=== PATIENT | female | born 1940 | race Two or more races ===

== ENCOUNTER 2020-01-07 21:11 | Inpatient (IN) ==
[2020-01-07] MEDS ORDERED: ASPIRIN 325 MG TABLET PO STA (22:17)
[2020-01-07] MEDS ORDERED: NITROGLYCERIN 2% OINT 1 INCH/GM PACK TOP STA (22:17)
[2020-01-07 22:44] LABS: Basophils # 0.1 10*3/uL (0.0-0.2); Basophils % 0.4 % (0.0-0.8); Eosinophils # 0.2 10*3/uL (0.0-0.87); Eosinophils % 1.7 % (0.00-10.9); Hematocrit 39.6 VOL% (35.7-47.0); Hemoglobin 13.2 GM/DL (12.0-16.0); Immature Granulocytes % 0.3 %; Immature Granulocytes Absolute 0.04 #; Lymphocytes # 3.6 10*3/uL (1.4-4.0); Lymphocytes % 30.5 % (21.3-54.2); Mean Corpuscular HGB Conc 33.3 GM/DL (32-36); Mean Corpuscular Volume 87.6 FL (87-102); Mean Platelet Volume 10.9 FL (9.6-12.0); Monocytes % 6.7 % (1.7-12.7); Neutrophils % 60.4 % (38.7-73.9); Platelet Count 358 T/CUMM (130-400); Red Blood Count 4.52 MC/CUMM (3.8-5.5); Red Cell Distribution Width 13.6 % (9.3-17.3); White Blood Count 11.9 T/CUMM (4-12)
[2020-01-07 22:50] LABS: Alanine Aminotransferase 20 U/L (13-56); Alkaline Phosphatase 183 U/L (45-117); Aspartate Amino Transferase 20 U/L (0-37); Bilirubin,Total < 0.39 MG/DL (0.2-1.0); Blood Urea Nitrogen 20 MG/DL (7-18); Calcium 9.4 MG/DL (8.5-10.1); Estimated Glom Filtration Rate 53 ML/MIN; Glucose 123 MG/DL (74-106); Osmolality,Calculated 280.5 MOS/KG (273-304); Total Protein 7.9 G/DL (6.4-8.3)
[2020-01-07] MEDS ORDERED: ENOXAPARIN 100 MG/ML SYRINGE SUBCUT STA (23:04)
[2020-01-07] MEDS ORDERED: TICAGRELOR 90 MG TABLET PO STA (23:07)
[2020-01-07] MEDS ORDERED: ACETAMINOPHEN 325 MG TABLET PO PRN (23:20)
[2020-01-07] MEDS ORDERED: ONDANSETRON 4 MG/2 ML VIAL IV PRN (23:20)
[2020-01-07] MEDS ORDERED: diphenhydrAMINE CAP 25 MG CAPSULE PO PRN (23:20)
[2020-01-07] MEDS ORDERED: MORPHINE 4 MG/1 ML VIAL IV PRN (23:20)
[2020-01-07] MEDS ORDERED: GLUCAGON 1 MG VIAL IM PRN (23:20)
[2020-01-07] MEDS ORDERED: DOCUSATE SODIUM 100 MG CAPSULE PO PRN (23:20)
[2020-01-07] MEDS ORDERED: NICOTINE 21 MG/24 HR PATCH TRANSDERM PRN (23:20)
[2020-01-07] MEDS ORDERED: DEXTROSE 50% 25 GM/50 ML VIAL IV PRN (23:20)
[2020-01-07] MEDS ORDERED: hydrALAZINE 20 MG/1 ML VIAL IV PRN (23:20)
[2020-01-07] MEDS ORDERED: guaiFENesin/DM ER 600-30 MG TABLET PO PRN (23:20)
[2020-01-07 23:23] LABS: Bilirubin,Urine Negative (Negative); Blood, Urine Negative (Negative); Glucose,Urine (UA) Negative (Negative); Ketones,Urine Negative (Negative); Mucus,Urine Occasional /LPF (Occasional); Nitrite,Urine Negative (Negative); Protein,Urine Negative; RBC,Urine <1 /HPF (0-4); Urine Appearance CLEAR (Clear); Urine Color Colorless (Yellow); Urine Specific Gravity 1.006 (1.001-1.035); Urine Urobilinogen < 2.0 EU/DL (0.2-1.0); WBC,Urine <1 /HPF (0-6)
[2020-01-07] MEDS ORDERED: NITROGLYCERIN SL 0.4 MG TABLET SL PRN (23:25)
[2020-01-08] MEDS ORDERED: ALUMINUM/MAGNES/SIMETH MAX STR 30 ML UDCUP PO PRN (02:25)
[2020-01-08] MEDS: POTASSIUM CHLORIDE 20 MEQ TABLET PO PRN ×3 (02:54→18:33)
[2020-01-08 04:11] LABS: Basophils % 0.3 % (0.0-0.8); Eosinophils # 0.1 10*3/uL (0.0-0.87); Eosinophils % 0.9 % (0.00-10.9); Hematocrit 37.4 VOL% (35.7-47.0); Hemoglobin 12.6 GM/DL (12.0-16.0); Immature Granulocytes % 0.4 %; Immature Granulocytes Absolute 0.04 #; Lymphocytes # 3.2 10*3/uL (1.4-4.0); Lymphocytes % 29.4 % (21.3-54.2); Mean Corpuscular HGB Conc 33.7 GM/DL (32-36); Mean Corpuscular Volume 88.6 FL (87-102); Mean Platelet Volume 10.1 FL (9.6-12.0); Monocytes % 4.4 % (1.7-12.7); Neutrophils % 64.6 % (38.7-73.9); Platelet Count 323 T/CUMM (130-400); Red Blood Count 4.22 MC/CUMM (3.8-5.5); Red Cell Distribution Width 13.6 % (9.3-17.3); White Blood Count 10.9 T/CUMM (4-12)
[2020-01-08 04:36] LABS: Calcium 9.4 MG/DL (8.5-10.1); Osmolality,Calculated 274.8 MOS/KG (273-304)
[2020-01-08] MEDS ORDERED: POTASSIUM CHLORIDE 20 MEQ TABLET PO ONE (06:19)
[2020-01-08] MEDS ORDERED: ASPIRIN 325 MG TABLET PO SCH ×2 (09:00)
[2020-01-08] MEDS: ENOXAPARIN 80 MG/0.8 ML SYRINGE SUBCUT SCH ×2 (10:23→20:34)
[2020-01-08] MEDS: amLODIPine 10 MG TABLET PO SCH (10:24)
[2020-01-08] MEDS: PANTOPRAZOLE 40 MG TABLET PO SCH (10:24)
[2020-01-08] MEDS: hydroCHLOROthiazide 12.5 MG CAPSULE PO SCH (10:25)
[2020-01-08] MEDS: TICAGRELOR 90 MG TABLET PO SCH ×2 (10:25→20:34)
[2020-01-08] MEDS: ASPIRIN EC 81 MG TABLET PO SCH (10:25)
[2020-01-08] MEDS: carvediloL 6.25 MG TABLET PO SCH ×2 (10:26→18:33)
[2020-01-08] MEDS ORDERED: DIAZEPAM 5 MG TABLET PO ONE (15:36)
[2020-01-08] MEDS ORDERED: MAGNESIUM SULF RIDER 2 GM in PREMIX 1 EACH IV PRN (15:36)
[2020-01-08] MEDS ORDERED: POTASSIUM CHLORIDE RIDER 10 MEQ in PREMIX 1 EACH IV PRN (15:36)
[2020-01-08] MEDS ORDERED: diphenhydrAMINE CAP 25 MG CAPSULE PO ONE (15:36)
[2020-01-08 17:07] LABS: Risk Ratio 3.2; VLDL CHOLESTEROL 32.2 MG/DL
[2020-01-08] MEDS: SIMVASTATIN 20 MG TABLET PO SCH (20:35)
[2020-01-08] MEDS: SODIUM CHLORIDE 0.9% 1,000 ML IV SCH (21:16)
[2020-01-08] MEDS: ZALEPLON 5 MG CAPSULE PO PRN (21:17)
[2020-01-09] MEDS: POTASSIUM CHLORIDE 20 MEQ TABLET PO PRN (04:21)
[2020-01-09 05:55] LABS: Basophils % 0.3 % (0.0-0.8); Eosinophils # 0.2 10*3/uL (0.0-0.87); Eosinophils % 2.5 % (0.00-10.9); Hematocrit 36.4 VOL% (35.7-47.0); Hemoglobin 12.2 GM/DL (12.0-16.0); Immature Granulocytes % 0.2 %; Immature Granulocytes Absolute 0.02 #; Lymphocytes # 3.3 10*3/uL (1.4-4.0); Lymphocytes % 37.7 % (21.3-54.2); Mean Corpuscular HGB Conc 33.5 GM/DL (32-36); Mean Corpuscular Volume 89.2 FL (87-102); Mean Platelet Volume 10.4 FL (9.6-12.0); Monocytes % 6.7 % (1.7-12.7); Neutrophils % 52.6 % (38.7-73.9); Platelet Count 309 T/CUMM (130-400); Red Blood Count 4.08 MC/CUMM (3.8-5.5); Red Cell Distribution Width 14.1 % (9.3-17.3); White Blood Count 8.7 T/CUMM (4-12)
[2020-01-09] MEDS ORDERED: DIAZEPAM 5 MG TABLET PO ONE (06:00)
[2020-01-09] MEDS ORDERED: diphenhydrAMINE CAP 25 MG CAPSULE PO ONE (06:00)
[2020-01-09 06:31] LABS: Calcium 9.2 MG/DL (8.5-10.1); Osmolality,Calculated 278.4 MOS/KG (273-304)
[2020-01-09] MEDS: SODIUM CHLORIDE 0.9% 1,000 ML IV SCH ×2 (07:56→17:40)
[2020-01-09] MEDS: hydroCHLOROthiazide 12.5 MG CAPSULE PO SCH (08:49)
[2020-01-09] MEDS: carvediloL 6.25 MG TABLET PO SCH ×2 (08:50→17:40)
[2020-01-09] MEDS: TICAGRELOR 90 MG TABLET PO SCH (08:50)
[2020-01-09] MEDS: ASPIRIN EC 81 MG TABLET PO SCH (08:50)
[2020-01-09] MEDS: PANTOPRAZOLE 40 MG TABLET PO SCH (08:50)
[2020-01-09] MEDS: amLODIPine 10 MG TABLET PO SCH (08:50)
[2020-01-09] MEDS ORDERED: LIDOCAINE 1% 20 ML VIAL ONE ×2 (11:31→12:23)
[2020-01-09] MEDS ORDERED: HEPARIN/NACL 0.9% 2 UNITS/ML 1,000 ML IV ONE ×2 (11:31→12:23)
[2020-01-09] MEDS ORDERED: MIDAZOLAM 2 MG/2 ML VIAL ONE (12:23)
[2020-01-09] MEDS ORDERED: fentaNYL 100 MCG/2 ML VIAL ONE (12:23)
[2020-01-09] MEDS ORDERED: BIVALIRUDIN 250 MG VIAL IV ONE (12:42)
[2020-01-09] MEDS: ZALEPLON 5 MG CAPSULE PO PRN (21:12)
[2020-01-09] MEDS: SIMVASTATIN 20 MG TABLET PO SCH (21:13)
[2020-01-10] MEDS: SODIUM CHLORIDE 0.9% 1,000 ML IV SCH (04:30)
[2020-01-10 05:45] LABS: Basophils % 0.4 % (0.0-0.8); Eosinophils # 0.2 10*3/uL (0.0-0.87); Eosinophils % 2.4 % (0.00-10.9); Hematocrit 36.4 VOL% (35.7-47.0); Hemoglobin 12.2 GM/DL (12.0-16.0); Immature Granulocytes % 0.3 %; Immature Granulocytes Absolute 0.03 #; Lymphocytes # 2.8 10*3/uL (1.4-4.0); Lymphocytes % 29.8 % (21.3-54.2); Mean Corpuscular HGB Conc 33.5 GM/DL (32-36); Mean Platelet Volume 10.4 FL (9.6-12.0); Monocytes % 5.8 % (1.7-12.7); Neutrophils % 61.3 % (38.7-73.9); Platelet Count 290 T/CUMM (130-400); Red Blood Count 4.09 MC/CUMM (3.8-5.5); White Blood Count 9.5 T/CUMM (4-12)
[2020-01-10 06:05] LABS: Calcium 8.9 MG/DL (8.5-10.1); Osmolality,Calculated 279.5 MOS/KG (273-304)
[2020-01-10] MEDS: amLODIPine 10 MG TABLET PO SCH (08:25)
[2020-01-10] MEDS: POTASSIUM CHLORIDE 20 MEQ TABLET PO PRN (08:25)
[2020-01-10] MEDS: hydroCHLOROthiazide 12.5 MG CAPSULE PO SCH (08:25)
[2020-01-10] MEDS: carvediloL 6.25 MG TABLET PO SCH (08:25)
[2020-01-10] MEDS: PANTOPRAZOLE 40 MG TABLET PO SCH (08:25)
[2020-01-10] MEDS: ASPIRIN EC 81 MG TABLET PO SCH (08:25)
[2020-01-10] MEDS ORDERED: ISOSORBIDE MONONITRATE 30 MG TABLET PO SCH (11:40)
[2020-01-10 12:46] VITALS: BP 131/63
== END 2020-01-10 12:47 | disposition home or self-care, planned readmission (81) | DRG 282 ==
LOC: N.ED 21:11 → N.EDINP 23:20 → SUATTDRO 23:20 → N.TELES 01-08 01:17
PROVIDERS: ADMIT Emergency Medicine; ATTEND Hospitalist

== ENCOUNTER 2020-01-17 09:00 | Inpatient (IN) ==
[2020-01-17] MEDS ORDERED: DEXTROSE 50% 25 GM/50 ML VIAL IV PRN (09:45)
[2020-01-17] MEDS ORDERED: CEFUROXIME INJ 1,500 MG in SYRINGE 1 EACH IV ONE (09:45)
[2020-01-17] MEDS ORDERED: GLUCAGON 1 MG VIAL IM PRN (09:45)
[2020-01-17] MEDS ORDERED: SODIUM CHLORIDE 0.9% 1,000 ML IV SCH (10:00)
[2020-01-17] MEDS ORDERED: INFLUENZA VIRUS VACCINE 0.5 ML SYRINGE IM ONE (10:10)
[2020-01-17 10:15] LABS: ABG Base Excess 5.7 MMOL/L (-2.5-2.5); ABG HCO3 29.4 MMOL/L (20-26); ABG Oxygen Saturation 94.4 % (95-100); ABG PH 7.493 (7.35-7.45); ABG PO2 66.5 MM HG (80-95); ABG TCO2 25.3 MMOL/L (23-27); Pt O2 Delivery Device Room Air
[2020-01-17 10:15] LABS: Basophils % 0.4 % (0.0-0.8); Eosinophils # 0.1 10*3/uL (0.0-0.87); Eosinophils % 1.3 % (0.00-10.9); Hematocrit 40.7 VOL% (35.7-47.0); Hemoglobin 14.1 GM/DL (12.0-16.0); Immature Granulocytes % 0.5 %; Immature Granulocytes Absolute 0.05 #; Lymphocytes # 2.7 10*3/uL (1.4-4.0); Lymphocytes % 25.4 % (21.3-54.2); Mean Corpuscular HGB Conc 34.6 GM/DL (32-36); Monocytes % 7.3 % (1.7-12.7); Neutrophils % 65.1 % (38.7-73.9); Platelet Count 403 T/CUMM (130-400); Red Blood Count 4.73 MC/CUMM (3.8-5.5); Red Cell Distribution Width 13.2 % (9.3-17.3); White Blood Count 10.5 T/CUMM (4-12)
[2020-01-17] MEDS ORDERED: PNEUMOCOCCAL VACCINE (13 VALENT) 0.5 ML SYRINGE IM ONE (10:23)
[2020-01-17 10:35] LABS: Alanine Aminotransferase 29 U/L (13-56); Albumin 3.9 G/DL (3.4-5.0); Alkaline Phosphatase 159 U/L (45-117); Aspartate Amino Transferase 18 U/L (0-37); Bilirubin,Total < 0.39 MG/DL (0.2-1.0); Blood Urea Nitrogen 16 MG/DL (7-18); Calcium 9.6 MG/DL (8.5-10.1); Estimated Glom Filtration Rate 56 ML/MIN; Glucose 102 MG/DL (74-106); Osmolality,Calculated 268.2 MOS/KG (273-304); Total Protein 8.4 G/DL (6.4-8.3)
[2020-01-17] MEDS ORDERED: ACETAMINOPHEN 325 MG TABLET PO PRN (11:12)
[2020-01-17] MEDS ORDERED: ZALEPLON 5 MG CAPSULE PO PRN (12:23)
[2020-01-17] MEDS ORDERED: CLORAZEPATE 3.75 MG TABLET PO PRN (12:26)
[2020-01-17] MEDS ORDERED: DIAZEPAM 5 MG TABLET PO ONE (14:22)
[2020-01-17] MEDS ORDERED: FAMOTIDINE 20 MG TABLET PO ONE (14:22)
[2020-01-17] MEDS: ASCORBIC ACID 500 MG TABLET PO SCH ×2 (14:41→21:07)
[2020-01-17] MEDS: CHLORHEXIDINE 4% SOLN 118 ML BOTTLE TOP SCH ×2 (14:42→21:10)
[2020-01-17] MEDS: carvediloL 6.25 MG TABLET PO SCH (18:24)
[2020-01-17] MEDS ORDERED: ROSUVASTATIN 20 MG TABLET PO SCH (21:00)
[2020-01-17] MEDS ORDERED: PRAVASTATIN 40 MG TABLET PO SCH (21:00)
[2020-01-17] MEDS: CHLORHEXIDINE 0.12% ORAL RINSE 60 ML BOTTLE SWISH/SPIT SCH (21:37)
[2020-01-18] MEDS ORDERED: PAPAVERINE 60 MG/2 ML VIAL ONE (04:22)
[2020-01-18] MEDS ORDERED: VANCOMYCIN 500 MG VIAL ONE (04:23)
[2020-01-18] MEDS ORDERED: VANCOMYCIN 1,000 MG VIAL ONE (04:23)
[2020-01-18] MEDS ORDERED: DIAZEPAM 5 MG TABLET PO ONE (06:00)
[2020-01-18] MEDS ORDERED: CEFUROXIME INJ 1,500 MG in SYRINGE 1 EACH IV ONE (06:00)
[2020-01-18] MEDS ORDERED: FAMOTIDINE 20 MG TABLET PO ONE (06:00)
[2020-01-18] MEDS ORDERED: SODIUM CHLORIDE 0.9% 1,000 ML IV SCH (06:00)
[2020-01-18 07:31] LABS: ABG Base Excess 2.3 MMOL/L (-2.5-2.5); ABG HCO3 26.5 MMOL/L (20-26); ABG PCO2 37.2 MM HG (35-48); ABG PH 7.455 (7.35-7.45); ABG TCO2 23.4 MMOL/L (23-27); Glucose Heart Surgery 113 MG/DL (74-106); Hematocrit Heart Surgery 33.3 PERCENT (37-47); Hemoglobin Heart Surgery 10.8 G/DL (12.0-16.0); Ionized Calcium Arterial 1.23 MMOL/L (1.21-1.46); PCO2 Patient Temp Arterial 37.2 MMHG; PH Patient Temp Arterial 7.455; Patient Temperature 37 CELCIUS; Potassium Heart/CVR 2.7 MMOL/L (3.5-5.1); Sodium Heart/CVR 139 MMOL/L (135-145)
[2020-01-18 07:55] LABS: Amorphous Crystals,Urine Few /HPF (Few); Bilirubin,Urine Negative (Negative); Blood, Urine Negative (Negative); Glucose,Urine (UA) Negative (Negative); Ketones,Urine Negative (Negative); Mucus,Urine Occasional /LPF (Occasional); Nitrite,Urine Negative (Negative); Protein,Urine Negative; RBC,Urine <1 /HPF (0-4); Urine Appearance CLEAR (Clear); Urine Color Yellow (Yellow); Urine Specific Gravity 1.016 (1.001-1.035)
[2020-01-18] MEDS ORDERED: ASPIRIN EC 81 MG TABLET PO SCH (09:00)
[2020-01-18] MEDS ORDERED: hydroCHLOROthiazide 12.5 MG CAPSULE PO SCH (09:00)
[2020-01-18] MEDS ORDERED: ISOSORBIDE MONONITRATE 30 MG TABLET PO SCH (09:00)
[2020-01-18] MEDS ORDERED: amLODIPine 10 MG TABLET PO SCH (09:00)
[2020-01-18 09:09] LABS: Hematocrit Heart Surgery 21.7 PERCENT (37-47); Hemoglobin Heart Surgery 6.9 G/DL (12.0-16.0); PCO2 Patient Temp Venous 30.8 MM HG; PH Patient Temp Venous 7.535; Potassium Heart/CVR 4.6 MMOL/L (3.5-5.1); VBG Base Excess 3.6 MEQ/L (0-4); VBG HCO3 27.4 MEQ/L (24-28); VBG PCO2 35.6 MMHG (41-51); VBG PH 7.489; VBG PO2 38.2 MMHG (17-40)
[2020-01-18] MEDS ORDERED: PHENYLEPHRINE 10 MG/1 ML VIAL IV ONE ×2 (09:15→12:09)
[2020-01-18] MEDS ORDERED: HEPARIN/NACL 0.9% 2 UNITS/ML 500 ML IV ONE (09:15)
[2020-01-18] MEDS ORDERED: NITROGLYCERIN DRIP 50 MG/250 ML BOTTLE IV ONE (09:16)
[2020-01-18 09:35] LABS: Hematocrit Heart Surgery 25.1 PERCENT (37-47); Hemoglobin Heart Surgery 8.1 G/DL (12.0-16.0); PCO2 Patient Temp Venous 30.6 MM HG; PH Patient Temp Venous 7.524; PO2 Patient Temp Venous 27.4 MM HG; Potassium Heart/CVR 4.2 MMOL/L (3.5-5.1); VBG Base Excess 2.8 MEQ/L (0-4); VBG HCO3 26.5 MEQ/L (24-28); VBG Oxygen Saturation 67.8 %; VBG PCO2 35.4 MMHG (41-51); VBG PH 7.479; VBG PO2 33.9 MMHG (17-40)
[2020-01-18 10:04] LABS: PCO2 Patient Temp Venous 31.7 MM HG; PH Patient Temp Venous 7.502; PO2 Patient Temp Venous 37.4 MM HG; Potassium Heart/CVR 4.1 MMOL/L (3.5-5.1); VBG HCO3 25.9 MEQ/L (24-28); VBG Oxygen Saturation 78.1 %; VBG PCO2 33.3 MMHG (41-51); VBG PH 7.487; VBG PO2 40.2 MMHG (17-40)
[2020-01-18] MEDS ORDERED: PHENYLEPHRINE DRIP 40 MG/250 ML PREMIX IV ONE (10:16)
[2020-01-18] MEDS ORDERED: ALBUMIN 5% 12.5 GM/250 ML VIAL IV ONE (10:16)
[2020-01-18] MEDS ORDERED: POTASSIUM CHLORIDE RIDER 100 ML IV ONE ×2 (10:17→18:00)
[2020-01-18] MEDS: carvediloL 6.25 MG TABLET PO SCH (10:24)
[2020-01-18] MEDS: CHLORHEXIDINE 0.12% ORAL RINSE 60 ML BOTTLE SWISH/SPIT SCH (10:25)
[2020-01-18] MEDS: ASCORBIC ACID 500 MG TABLET PO SCH (10:25)
[2020-01-18] MEDS: CHLORHEXIDINE 4% SOLN 118 ML BOTTLE TOP SCH (10:25)
[2020-01-18] MEDS ORDERED: LIDOCAINE 2% 5 ML VIAL ONE (10:40)
[2020-01-18] MEDS ORDERED: MANNITOL 100 GM/500 ML BAG IV ONE (10:40)
[2020-01-18] MEDS ORDERED: PROTAMINE SULFATE 50 MG/5 ML VIAL IV ONE (10:41)
[2020-01-18] MEDS ORDERED: PROTAMINE SULFATE 250 MG/25 ML VIAL IV ONE (10:41)
[2020-01-18] MEDS ORDERED: methylPREDNISolone SOD SUC 1,000 MG/8 ML VIAL ONE (10:41)
[2020-01-18] MEDS ORDERED: ALBUMIN 25% 25 GM/100 ML VIAL IV ONE (10:41)
[2020-01-18] MEDS ORDERED: DEXTROSE 5% KCL 20 MEQ 20 MEQ/1,000 ML BAG IV ONE (10:41)
[2020-01-18] MEDS ORDERED: HEPARIN 10,000 UNIT/10 ML VIAL ONE (10:41)
[2020-01-18] MEDS ORDERED: SODIUM BICARBONATE 50 MEQ/50 ML VIAL IV ONE (10:41)
[2020-01-18] MEDS ORDERED: MAGNESIUM SULFATE 5 GM/10 ML VIAL IV ONE (10:41)
[2020-01-18] MEDS ORDERED: FUROSEMIDE 20 MG/2 ML VIAL ONE (10:41)
[2020-01-18] MEDS ORDERED: POTASSIUM CHLORIDE 20 MEQ/10 ML VIAL ONE (10:42)
[2020-01-18 10:47] LABS: ABG Base Excess 0.4 MMOL/L (-2.5-2.5); ABG HCO3 24.8 MMOL/L (20-26); ABG PCO2 35.1 MM HG (35-48); ABG PH 7.447 (7.35-7.45); ABG TCO2 22.4 MMOL/L (23-27); Glucose Heart Surgery 235 MG/DL (74-106); Hematocrit Heart Surgery 25.9 PERCENT (37-47); Hemoglobin Heart Surgery 8.3 G/DL (12.0-16.0); Ionized Calcium Arterial 1.34 MMOL/L (1.21-1.46); PCO2 Patient Temp Arterial 35.1 MMHG; PH Patient Temp Arterial 7.447; Patient Temperature 37 CELCIUS; Potassium Heart/CVR 2.8 MMOL/L (3.5-5.1); Sodium Heart/CVR 136 MMOL/L (135-145)
[2020-01-18] MEDS ORDERED: INSULIN REGULAR 100 UNIT/ML IV PRN (11:42)
[2020-01-18] MEDS ORDERED: DEXTROSE 50% 25 GM/50 ML VIAL IV PRN ×2 (11:42)
[2020-01-18] MEDS ORDERED: ALBUMIN 5% 12.5 GM in PREMIX 1 EACH IV PRN (11:42)
[2020-01-18] MEDS ORDERED: ACETAMINOPHEN 650 MG SUPP RECTAL PRN (11:42)
[2020-01-18] MEDS ORDERED: MAGNESIUM SULF RIDER 2 GM in PREMIX 1 EACH IV PRN (11:42)
[2020-01-18] MEDS ORDERED: SODIUM CHLORIDE 0.45% 1,000 ML IV SCH ×2 (11:42)
[2020-01-18] MEDS ORDERED: INSULIN REGULAR 100 UNIT/ML IV ONE (11:42)
[2020-01-18] MEDS ORDERED: MAGNESIUM SULF RIDER 4 GM in PREMIX 1 EACH IV PRN (11:42)
[2020-01-18] MEDS ORDERED: MORPHINE 10 MG/1 ML VIAL IV PRN (11:42)
[2020-01-18] MEDS ORDERED: MIDAZOLAM 2 MG/2 ML VIAL IV PRN (11:42)
[2020-01-18] MEDS ORDERED: PHENYLEPHRINE DRIP 40 MG/250 ML PREMIX IV PRN (11:42)
[2020-01-18] MEDS ORDERED: MIDAZOLAM 10 MG/2 ML VIAL IV PRN (11:42)
[2020-01-18] MEDS ORDERED: CHLORHEXIDINE 4% SOLN 118 ML BOTTLE TOP PRN (11:42)
[2020-01-18] MEDS ORDERED: VECURONIUM 10 MG VIAL IV PRN ×2 (11:42)
[2020-01-18] MEDS ORDERED: INSULIN REGULAR DRIP 100 ML IV SCH (11:42)
[2020-01-18] MEDS ORDERED: CALCIUM CHLORIDE 1,000 MG/10 ML SYRINGE IV PRN (11:42)
[2020-01-18] MEDS ORDERED: NITROPRUSSIDE 100 MG in DEXTROSE 5% 250 ML IV PRN (11:42)
[2020-01-18] MEDS ORDERED: ONDANSETRON 4 MG/2 ML VIAL IV PRN (11:42)
[2020-01-18] MEDS: LACTATED RINGERS 250 ML IV PRN ×5 (11:52→18:37)
[2020-01-18 11:53] LABS: ABG Base Excess 0.2 MMOL/L (-2.5-2.5); ABG HCO3 24.6 MMOL/L (20-26); ABG PCO2 36.3 MM HG (35-48); ABG PH 7.432 (7.35-7.45); ABG TCO2 22.1 MMOL/L (23-27); Glucose Heart Surgery 204 MG/DL (74-106); Hematocrit Heart Surgery 29.5 PERCENT (37-47); Hemoglobin Heart Surgery 9.5 G/DL (12.0-16.0); Potassium Heart/CVR 3.5 MMOL/L (3.5-5.1)
[2020-01-18 11:55] LABS: Basophils % 0.2 % (0.0-0.8); Eosinophils # 0.2 10*3/uL (0.0-0.87); Eosinophils % 0.9 % (0.00-10.9); Hematocrit 27.6 VOL% (35.7-47.0); Immature Granulocytes % 0.5 %; Immature Granulocytes Absolute 0.08 #; Lymphocytes # 2.2 10*3/uL (1.4-4.0); Mean Corpuscular HGB Conc 34.4 GM/DL (32-36); Mean Corpuscular Volume 86.3 FL (87-102); Mean Platelet Volume 10.4 FL (9.6-12.0); Monocytes % 4.1 % (1.7-12.7); Neutrophils % 81.3 % (38.7-73.9); Red Cell Distribution Width 13.2 % (9.3-17.3); White Blood Count 17.2 T/CUMM (4-12)
[2020-01-18 11:56] LABS: Hemoglobin 9.5 GM/DL (12.0-16.0); Platelet Count 241 T/CUMM (130-400)
[2020-01-18] MEDS: POTASSIUM CHLORIDE RIDER 20 MEQ in PREMIX 1 EACH IV PRN ×5 (11:58→23:27)
[2020-01-18 12:03] LABS: INR 1.2
[2020-01-18] MEDS ORDERED: CALCIUM CHLORIDE 1,000 MG/10 ML VIAL IV ONE (12:07)
[2020-01-18] MEDS ORDERED: LACTATED RINGERS 1,000 ML IV ONE (12:08)
[2020-01-18] MEDS ORDERED: SUFentanil 250 MCG/5 ML AMP ONE (12:08)
[2020-01-18] MEDS ORDERED: SODIUM CHLORIDE 0.9% 1,000 ML IV ONE (12:08)
[2020-01-18] MEDS ORDERED: SEVOFLURANE 1 UNIT/15 MINUTE INH ONE (12:08)
[2020-01-18] MEDS ORDERED: MIDAZOLAM 10 MG/2 ML VIAL ONE (12:08)
[2020-01-18] MEDS ORDERED: AMINOCAPROIC ACID 5,000 MG/20 ML VIAL ONE (12:08)
[2020-01-18] MEDS ORDERED: SODIUM CHLORIDE 0.9% 500 ML IV ONE (12:08)
[2020-01-18] MEDS ORDERED: VECURONIUM 10 MG VIAL IV ONE (12:08)
[2020-01-18 12:12] LABS: CKMB % 8.7 %
[2020-01-18 12:15] LABS: Troponin I 7.68 NG/ML (0.00-0.045)
[2020-01-18 12:28] LABS: Bilirubin,Total 0.5 MG/DL (0.2-1.0); Calcium 10.3 MG/DL (8.5-10.1); Osmolality,Calculated 285.3 MOS/KG (273-304); Total Protein 5.6 G/DL (6.4-8.3)
[2020-01-18 13:44] LABS: ABG Base Excess 0.4 MMOL/L (-2.5-2.5); ABG HCO3 24.8 MMOL/L (20-26); ABG PCO2 35.5 MM HG (35-48); ABG TCO2 21.4 MMOL/L (23-27); Glucose Heart Surgery 207 MG/DL (74-106); Hemoglobin Heart Surgery 11.7 G/DL (12.0-16.0); Potassium Heart/CVR 3.5 MMOL/L (3.5-5.1)
[2020-01-18] MEDS: POTASSIUM CHLORIDE RIDER 10 MEQ in PREMIX 1 EACH IV PRN ×2 (13:59→14:54)
[2020-01-18 17:06] LABS: ABG Base Excess 0.8 MMOL/L (-2.5-2.5); ABG HCO3 25.1 MMOL/L (20-26); ABG PCO2 39.3 MM HG (35-48); ABG PH 7.416 (7.35-7.45); ABG TCO2 22.6 MMOL/L (23-27); Glucose Heart Surgery 164 MG/DL (74-106); Hematocrit Heart Surgery 34.2 PERCENT (37-47); Hemoglobin Heart Surgery 11.1 G/DL (12.0-16.0); Potassium Heart/CVR 3.2 MMOL/L (3.5-5.1)
[2020-01-18] MEDS: CEFUROXIME INJ 1,500 MG in SYRINGE 1 EACH IV SCH (18:24)
[2020-01-18 20:29] LABS: ABG Base Excess 0.6 MMOL/L (-2.5-2.5); ABG HCO3 24.9 MMOL/L (20-26); ABG Oxygen Saturation 99.1 % (95-100); ABG PCO2 38.7 MM HG (35-48); ABG PH 7.418 (7.35-7.45); ABG TCO2 22.4 MMOL/L (23-27); Glucose Heart Surgery 113 MG/DL (74-106); Hematocrit Heart Surgery 33.6 PERCENT (37-47); Hemoglobin Heart Surgery 10.9 G/DL (12.0-16.0); Potassium Heart/CVR 3.5 MMOL/L (3.5-5.1)
[2020-01-18 20:36] LABS: CKMB % 7.9 %
[2020-01-18] MEDS ORDERED: FUROSEMIDE 40 MG/4 ML VIAL IV ONE (20:43)
[2020-01-18 20:44] LABS: Troponin I 6.28 NG/ML (0.00-0.045)
[2020-01-18] MEDS ORDERED: FUROSEMIDE 40 MG/4 ML VIAL ONE (20:48)
[2020-01-18] MEDS ORDERED: CHLORHEXIDINE 0.12% ORAL RINSE 60 ML BOTTLE SWISH/SPIT SCH (21:00)
[2020-01-18 21:21] LABS: ABG Base Excess 1.4 MMOL/L (-2.5-2.5); ABG HCO3 25.6 MMOL/L (20-26); ABG Oxygen Saturation 98.5 % (95-100); ABG PCO2 42.6 MM HG (35-48); ABG TCO2 23.6 MMOL/L (23-27); Glucose Heart Surgery 154 MG/DL (74-106); Hematocrit Heart Surgery 34.9 PERCENT (37-47); Hemoglobin Heart Surgery 11.3 G/DL (12.0-16.0); Potassium Heart/CVR 3.4 MMOL/L (3.5-5.1)
[2020-01-18 22:11] LABS: ABG Base Excess 0.9 MMOL/L (-2.5-2.5); ABG HCO3 25.2 MMOL/L (20-26); ABG Oxygen Saturation 97.5 % (95-100); ABG PH 7.364 (7.35-7.45); ABG PO2 99.8 MM HG (80-95); Glucose Heart Surgery 178 MG/DL (74-106); Hemoglobin Heart Surgery 11.4 G/DL (12.0-16.0); Potassium Heart/CVR 3.1 MMOL/L (3.5-5.1)
[2020-01-19 01:02] LABS: ABG Base Excess -0.2 MMOL/L (-2.5-2.5); ABG HCO3 24.3 MMOL/L (20-26); ABG Oxygen Saturation 97.6 % (95-100); ABG PCO2 43.9 MM HG (35-48); ABG PH 7.369 (7.35-7.45); ABG PO2 98.4 MM HG (80-95); ABG TCO2 22.7 MMOL/L (23-27); Glucose Heart Surgery 132 MG/DL (74-106); Hematocrit Heart Surgery 34.5 PERCENT (37-47); Hemoglobin Heart Surgery 11.2 G/DL (12.0-16.0); Potassium Heart/CVR 4.4 MMOL/L (3.5-5.1)
[2020-01-19] MEDS: MORPHINE 4 MG/1 ML VIAL IV PRN ×2 (01:52→03:52)
[2020-01-19 02:05] LABS: ABG Base Excess -0.4 MMOL/L (-2.5-2.5); ABG PCO2 47.7 MM HG (35-48); ABG PH 7.341 (7.35-7.45); ABG PO2 78.9 MM HG (80-95); ABG TCO2 23.3 MMOL/L (23-27); Potassium Heart/CVR 4.3 MMOL/L (3.5-5.1)
[2020-01-19 02:06] LABS: Glucose Heart Surgery 137 MG/DL (74-106); Hematocrit Heart Surgery 34.1 PERCENT (37-47); Hemoglobin Heart Surgery 11.1 G/DL (12.0-16.0)
[2020-01-19] MEDS: POTASSIUM CHLORIDE RIDER 20 MEQ in PREMIX 1 EACH IV PRN (02:14)
[2020-01-19 04:08] LABS: ABG Base Excess -1.3 MMOL/L (-2.5-2.5); ABG HCO3 23.3 MMOL/L (20-26); ABG Oxygen Saturation 92.5 % (95-100); ABG PH 7.352 (7.35-7.45); ABG PO2 67.7 MM HG (80-95); ABG TCO2 22.1 MMOL/L (23-27); Glucose Heart Surgery 161 MG/DL (74-106); Hematocrit Heart Surgery 34.1 PERCENT (37-47); Hemoglobin Heart Surgery 11.1 G/DL (12.0-16.0); Potassium Heart/CVR 4.8 MMOL/L (3.5-5.1)
[2020-01-19 04:10] LABS: Basophils % 0.1 % (0.0-0.8); Hematocrit 34.1 VOL% (35.7-47.0); Hemoglobin 11.2 GM/DL (12.0-16.0); Immature Granulocytes % 0.4 %; Immature Granulocytes Absolute 0.09 #; Lymphocytes # 1.3 10*3/uL (1.4-4.0); Lymphocytes % 6.5 % (21.3-54.2); Mean Corpuscular HGB Conc 32.8 GM/DL (32-36); Mean Corpuscular Volume 87.2 FL (87-102); Mean Platelet Volume 10.5 FL (9.6-12.0); Monocytes % 4.8 % (1.7-12.7); Neutrophils % 88.2 % (38.7-73.9); Platelet Count 254 T/CUMM (130-400); Red Blood Count 3.91 MC/CUMM (3.8-5.5); Red Cell Distribution Width 14.6 % (9.3-17.3); White Blood Count 20.1 T/CUMM (4-12)
[2020-01-19 04:55] LABS: Alanine Aminotransferase 25 U/L (13-56); Albumin 3.6 G/DL (3.4-5.0); Alkaline Phosphatase 108 U/L (45-117); Aspartate Amino Transferase 57 U/L (0-37); Bilirubin,Direct < 0.100 MG/DL (0.0-0.20); Bilirubin,Total < 0.39 MG/DL (0.2-1.0); Blood Urea Nitrogen 18 MG/DL (7-18); Calcium 8.9 MG/DL (8.5-10.1); Estimated Glom Filtration Rate 65 ML/MIN; Glucose 151 MG/DL (74-106); Osmolality,Calculated 287.1 MOS/KG (273-304)
[2020-01-19 04:56] LABS: CKMB % 6.5 %
[2020-01-19 05:00] LABS: Troponin I 4.67 NG/ML (0.00-0.045)
[2020-01-19 05:00] LABS: Band Neutrophils 2 % (0-10); Eosinophils 2 % (0-10); Lymphocytes 4 % (20-55); Microcytosis Slight; Nucleated Red Blood Cells 1 (0-5); Platelet Estimate Normal; Segmented Neutrophils 89 % (50-85); Total Cells Counted 100
[2020-01-19] MEDS: KETOROLAC 30 MG/1 ML VIAL IV SCH ×3 (06:30→18:22)
[2020-01-19] MEDS: CEFUROXIME INJ 1,500 MG in SYRINGE 1 EACH IV SCH ×2 (06:30→17:58)
[2020-01-19] MEDS: INSULIN REGULAR 100 UNIT/ML SUBCUT SCH ×4 (07:54→21:58)
[2020-01-19] MEDS ORDERED: MAGNESIUM HYDROXIDE SUSP 30 ML UDCUP PO PRN (08:41)
[2020-01-19] MEDS ORDERED: MAGNESIUM SULF RIDER 2 GM in PREMIX 1 EACH IV PRN (08:41)
[2020-01-19] MEDS ORDERED: ONDANSETRON 4 MG/2 ML VIAL IV PRN (08:41)
[2020-01-19] MEDS ORDERED: ACETAMINOPHEN 325 MG TABLET PO PRN (08:41)
[2020-01-19] MEDS ORDERED: DEXTROSE 50% 25 GM/50 ML VIAL IV PRN (08:41)
[2020-01-19] MEDS ORDERED: GLUCAGON 1 MG VIAL IM PRN (08:41)
[2020-01-19] MEDS ORDERED: oxyCODONE/ACETAMINOPHEN 5-325 MG TABLET PO PRN (08:41)
[2020-01-19] MEDS ORDERED: POTASSIUM CHLORIDE 20 MEQ TABLET PO PRN (08:41)
[2020-01-19] MEDS ORDERED: MAGNESIUM SULF RIDER 4 GM in PREMIX 1 EACH IV PRN (08:41)
[2020-01-19] MEDS: FERROUS SULFATE 325 MG TABLET PO SCH (08:58)
[2020-01-19] MEDS: carvediloL 6.25 MG TABLET PO SCH ×2 (08:58→21:50)
[2020-01-19] MEDS: ASCORBIC ACID 500 MG TABLET PO SCH ×2 (08:58→21:49)
[2020-01-19] MEDS: PANTOPRAZOLE 40 MG TABLET PO SCH (08:59)
[2020-01-19] MEDS: CHLORHEXIDINE 0.12% ORAL RINSE 60 ML BOTTLE SWISH/SPIT SCH ×2 (08:59→21:50)
[2020-01-19] MEDS: ASPIRIN EC 81 MG TABLET PO SCH ×2 (08:59→09:15)
[2020-01-19] MEDS: DOCUSATE SODIUM 100 MG CAPSULE PO SCH (09:15)
[2020-01-19] MEDS: SODIUM CHLOR 0.45% KCL 20 MEQ 20 MEQ/1,000 ML BAG IV SCH (09:15)
[2020-01-19 11:44] LABS: Troponin I 3.18 NG/ML (0.00-0.045)
[2020-01-19] MEDS: ROSUVASTATIN 20 MG TABLET PO SCH (21:49)
[2020-01-19] MEDS: ZALEPLON 5 MG CAPSULE PO PRN (21:58)
[2020-01-20] MEDS: KETOROLAC 30 MG/1 ML VIAL IV SCH ×4 (00:55→18:25)
[2020-01-20] MEDS: INSULIN REGULAR 100 UNIT/ML SUBCUT SCH ×6 (01:41→21:18)
[2020-01-20 05:44] LABS: Basophils % 0.1 % (0.0-0.8); Hematocrit 28.2 VOL% (35.7-47.0); Hemoglobin 8.9 GM/DL (12.0-16.0); Immature Granulocytes % 0.7 %; Immature Granulocytes Absolute 0.12 #; Lymphocytes # 1.2 10*3/uL (1.4-4.0); Lymphocytes % 6.6 % (21.3-54.2); Mean Corpuscular HGB Conc 31.6 GM/DL (32-36); Mean Corpuscular Volume 92.2 FL (87-102); Mean Platelet Volume 10.7 FL (9.6-12.0); Monocytes % 4.4 % (1.7-12.7); Neutrophils % 88.2 % (38.7-73.9); Platelet Count 178 T/CUMM (130-400); Red Blood Count 3.06 MC/CUMM (3.8-5.5); Red Cell Distribution Width 14.7 % (9.3-17.3); White Blood Count 18.1 T/CUMM (4-12)
[2020-01-20 05:59] LABS: Alanine Aminotransferase 22 U/L (13-56); Albumin 2.9 G/DL (3.4-5.0); Alkaline Phosphatase 97 U/L (45-117); Aspartate Amino Transferase 38 U/L (0-37); Bilirubin,Direct < 0.100 MG/DL (0.0-0.20); Bilirubin,Total < 0.39 MG/DL (0.2-1.0); Blood Urea Nitrogen 26 MG/DL (7-18); Calcium 8.6 MG/DL (8.5-10.1); Estimated Glom Filtration Rate 85 ML/MIN; Glucose 147 MG/DL (74-106); Osmolality,Calculated 284.5 MOS/KG (273-304); Total Protein 6.1 G/DL (6.4-8.3)
[2020-01-20] MEDS ORDERED: FUROSEMIDE 40 MG/4 ML VIAL IV ONE (06:00)
[2020-01-20 06:01] LABS: Alanine Aminotransferase 22 U/L (13-56); Alkaline Phosphatase 94 U/L (45-117); Aspartate Amino Transferase 38 U/L (0-37); Bilirubin,Indirect 0.3 MG/DL (0.0-1.0); Bilirubin,Total < 0.39 MG/DL (0.2-1.0); CKMB % 2.4 %; Total Protein 6.2 G/DL (6.4-8.3)
[2020-01-20] MEDS: FERROUS SULFATE 325 MG TABLET PO SCH (10:14)
[2020-01-20] MEDS: ASPIRIN EC 81 MG TABLET PO SCH ×2 (10:14→10:22)
[2020-01-20] MEDS: DOCUSATE SODIUM 100 MG CAPSULE PO SCH (10:14)
[2020-01-20] MEDS: ASCORBIC ACID 500 MG TABLET PO SCH ×2 (10:16→21:20)
[2020-01-20] MEDS: PANTOPRAZOLE 40 MG TABLET PO SCH (10:17)
[2020-01-20] MEDS: carvediloL 6.25 MG TABLET PO SCH ×2 (10:17→21:20)
[2020-01-20] MEDS: CHLORHEXIDINE 0.12% ORAL RINSE 60 ML BOTTLE SWISH/SPIT SCH ×2 (10:19→21:20)
[2020-01-20] MEDS: ROSUVASTATIN 20 MG TABLET PO SCH (21:20)
[2020-01-20] MEDS: ZALEPLON 5 MG CAPSULE PO PRN (21:26)
[2020-01-21] MEDS: INSULIN REGULAR 100 UNIT/ML SUBCUT SCH ×4 (01:44→12:22)
[2020-01-21] MEDS: KETOROLAC 30 MG/1 ML VIAL IV SCH ×4 (01:59→18:20)
[2020-01-21 05:52] LABS: Basophils % 0.1 % (0.0-0.8); Eosinophils % 0.1 % (0.00-10.9); Hematocrit 26.9 VOL% (35.7-47.0); Hemoglobin 8.8 GM/DL (12.0-16.0); Immature Granulocytes % 0.5 %; Immature Granulocytes Absolute 0.08 #; Lymphocytes # 2.7 10*3/uL (1.4-4.0); Lymphocytes % 17.6 % (21.3-54.2); Mean Corpuscular HGB Conc 32.7 GM/DL (32-36); Mean Platelet Volume 11.2 FL (9.6-12.0); Monocytes % 6.6 % (1.7-12.7); Neutrophils % 75.1 % (38.7-73.9); Platelet Count 171 T/CUMM (130-400); Red Blood Count 2.99 MC/CUMM (3.8-5.5); Red Cell Distribution Width 14.6 % (9.3-17.3); White Blood Count 15.2 T/CUMM (4-12)
[2020-01-21 06:17] LABS: Alanine Aminotransferase 20 U/L (13-56); Albumin 2.8 G/DL (3.4-5.0); Alkaline Phosphatase 93 U/L (45-117); Aspartate Amino Transferase 28 U/L (0-37); Bilirubin,Direct < 0.100 MG/DL (0.0-0.20); Blood Urea Nitrogen 25 MG/DL (7-18); Calcium 8.6 MG/DL (8.5-10.1); Estimated Glom Filtration Rate 81 ML/MIN; Glucose 103 MG/DL (74-106); Osmolality,Calculated 282.4 MOS/KG (273-304); Total Protein 5.8 G/DL (6.4-8.3)
[2020-01-21 06:23] LABS: Alanine Aminotransferase 20 U/L (13-56); Albumin 2.8 G/DL (3.4-5.0); Alkaline Phosphatase 94 U/L (45-117); Aspartate Amino Transferase 27 U/L (0-37); Bilirubin,Indirect 0.3 MG/DL (0.0-1.0); Bilirubin,Total < 0.39 MG/DL (0.2-1.0); Total Protein 5.6 G/DL (6.4-8.3)
[2020-01-21] MEDS: DOCUSATE SODIUM 100 MG CAPSULE PO SCH (09:38)
[2020-01-21] MEDS: ASCORBIC ACID 500 MG TABLET PO SCH ×2 (09:38→21:31)
[2020-01-21] MEDS: ASPIRIN EC 81 MG TABLET PO SCH ×2 (09:38→09:39)
[2020-01-21] MEDS: carvediloL 6.25 MG TABLET PO SCH ×2 (09:39→21:41)
[2020-01-21] MEDS: FERROUS SULFATE 325 MG TABLET PO SCH (09:39)
[2020-01-21] MEDS: PANTOPRAZOLE 40 MG TABLET PO SCH (09:39)
[2020-01-21] MEDS: CHLORHEXIDINE 0.12% ORAL RINSE 60 ML BOTTLE SWISH/SPIT SCH ×2 (09:44→21:43)
[2020-01-21] MEDS: ALUMINUM/MAGNES/SIMETH MAX STR 30 ML UDCUP PO PRN (11:29)
[2020-01-21] MEDS: SODIUM CHLOR 0.45% KCL 20 MEQ 20 MEQ/1,000 ML BAG IV SCH (11:36)
[2020-01-21] MEDS: ROSUVASTATIN 20 MG TABLET PO SCH (21:31)
[2020-01-21] MEDS: ZALEPLON 5 MG CAPSULE PO PRN (21:41)
[2020-01-22] MEDS: KETOROLAC 30 MG/1 ML VIAL IV SCH ×4 (00:33→18:24)
[2020-01-22 06:10] LABS: Basophils % 0.1 % (0.0-0.8); Eosinophils # 0.4 10*3/uL (0.0-0.87); Eosinophils % 3.3 % (0.00-10.9); Hematocrit 28.6 VOL% (35.7-47.0); Hemoglobin 9.2 GM/DL (12.0-16.0); Immature Granulocytes % 0.6 %; Immature Granulocytes Absolute 0.07 #; Lymphocytes # 3.6 10*3/uL (1.4-4.0); Lymphocytes % 30.5 % (21.3-54.2); Mean Corpuscular HGB Conc 32.2 GM/DL (32-36); Mean Corpuscular Volume 89.9 FL (87-102); Monocytes % 5.7 % (1.7-12.7); NRBC # 0.03 10*3/uL; Neutrophils % 59.8 % (38.7-73.9); Platelet Count 189 T/CUMM (130-400); Red Blood Count 3.18 MC/CUMM (3.8-5.5); Red Cell Distribution Width 14.7 % (9.3-17.3); White Blood Count 11.9 T/CUMM (4-12)
[2020-01-22 06:26] LABS: Calcium 8.3 MG/DL (8.5-10.1); Osmolality,Calculated 283.4 MOS/KG (273-304)
[2020-01-22] MEDS: ASPIRIN EC 81 MG TABLET PO SCH ×2 (09:40→09:41)
[2020-01-22] MEDS: carvediloL 6.25 MG TABLET PO SCH ×2 (09:40→21:18)
[2020-01-22] MEDS: DOCUSATE SODIUM 100 MG CAPSULE PO SCH (09:40)
[2020-01-22] MEDS: PANTOPRAZOLE 40 MG TABLET PO SCH (09:40)
[2020-01-22] MEDS: FERROUS SULFATE 325 MG TABLET PO SCH (09:40)
[2020-01-22] MEDS: ASCORBIC ACID 500 MG TABLET PO SCH ×2 (09:40→21:18)
[2020-01-22] MEDS: ALUMINUM/MAGNES/SIMETH MAX STR 30 ML UDCUP PO PRN (10:53)
[2020-01-22] MEDS: CHLORHEXIDINE 0.12% ORAL RINSE 60 ML BOTTLE SWISH/SPIT SCH ×2 (10:55→21:21)
[2020-01-22] MEDS: ROSUVASTATIN 20 MG TABLET PO SCH (21:18)
[2020-01-22] MEDS: ZALEPLON 5 MG CAPSULE PO PRN (21:18)
[2020-01-23] MEDS: KETOROLAC 30 MG/1 ML VIAL IV SCH ×3 (00:39→13:14)
[2020-01-23 07:09] LABS: Basophils % 0.2 % (0.0-0.8); Eosinophils # 0.5 10*3/uL (0.0-0.87); Eosinophils % 3.9 % (0.00-10.9); Hematocrit 26.8 VOL% (35.7-47.0); Hemoglobin 8.7 GM/DL (12.0-16.0); Immature Granulocytes % 0.9 %; Immature Granulocytes Absolute 0.11 #; Lymphocytes # 3.3 10*3/uL (1.4-4.0); Lymphocytes % 28.5 % (21.3-54.2); Mean Corpuscular HGB Conc 32.5 GM/DL (32-36); Mean Corpuscular Volume 91.2 FL (87-102); Mean Platelet Volume 11.6 FL (9.6-12.0); Monocytes % 5.4 % (1.7-12.7); NRBC # 0.02 10*3/uL; Neutrophils % 61.1 % (38.7-73.9); Platelet Count 195 T/CUMM (130-400); Red Blood Count 2.94 MC/CUMM (3.8-5.5); White Blood Count 11.6 T/CUMM (4-12)
[2020-01-23 07:18] LABS: Alanine Aminotransferase 21 U/L (13-56); Albumin 2.2 G/DL (3.4-5.0); Alkaline Phosphatase 99 U/L (45-117); Aspartate Amino Transferase 21 U/L (0-37); Bilirubin,Direct < 0.100 MG/DL (0.0-0.20); Bilirubin,Indirect 0.6 MG/DL (0.0-1.0); Blood Urea Nitrogen 21 MG/DL (7-18); Calcium 8.5 MG/DL (8.5-10.1); Estimated Glom Filtration Rate 85 ML/MIN; Glucose 91 MG/DL (74-106); Osmolality,Calculated 283.3 MOS/KG (273-304); Total Protein 5.3 G/DL (6.4-8.3)
[2020-01-23 07:19] LABS: Troponin I 0.558 NG/ML (0.00-0.045)
[2020-01-23] MEDS: ASCORBIC ACID 500 MG TABLET PO SCH (09:24)
[2020-01-23] MEDS: DOCUSATE SODIUM 100 MG CAPSULE PO SCH (09:24)
[2020-01-23] MEDS: FERROUS SULFATE 325 MG TABLET PO SCH (09:24)
[2020-01-23] MEDS: carvediloL 6.25 MG TABLET PO SCH (09:24)
[2020-01-23] MEDS: ASPIRIN EC 81 MG TABLET PO SCH ×2 (09:24→09:25)
[2020-01-23] MEDS: PANTOPRAZOLE 40 MG TABLET PO SCH (09:24)
[2020-01-23] MEDS: CHLORHEXIDINE 0.12% ORAL RINSE 60 ML BOTTLE SWISH/SPIT SCH (09:25)
[2020-01-23 12:44] VITALS: BP 162/75
== END 2020-01-23 14:31 | disposition home or self-care (01) | DRG 235 ==
LOC: N.TELES 09:32 → N.CVR 01-18 11:04 → N.ICU 01-19 07:53 → N.TELES 01-19 18:00